=== PATIENT | male | born 1995 | race Caucasian/White ===

== ENCOUNTER 2024-09-24 20:39 | Emergency (ER) | payer BC ==
[~2024-09-24] VITALS: Ht 180.3 cm; Wt 95.5 kg
[2024-09-24] VITALS (7 sets, daily range): BP systolic 81–141; BP diastolic 53–96
[2024-09-24] MEDS ORDERED: SODIUM CHLORIDE 0.9% 1,000 ML IV STA (20:46)
[2024-09-24] MEDS ORDERED: TAMSULOSIN HCL 0.4 MG CAP PO STA (20:46)
[2024-09-24] MEDS ORDERED: MORPHINE SULFATE 4 MG/ML VIAL IV STA (20:46)
[2024-09-24] MEDS ORDERED: KETOROLAC TROMETHAMINE 30 MG/ML SDV IV ONE (20:50)
[2024-09-24] MEDS ORDERED: PROMETHAZINE HCL 25 MG/ML AMP IV ONE (20:50)
[2024-09-24 21:01] LABS: BASO% 0.8 % (0-3); EOS% 2.2 % (0-8); HEMATOCRIT 42.1 % (39.0-50.0); HEMOGLOBIN 14.1 g/dl (14.0-18.0); LYMPH% 29.6 % (15-41); MEAN CELL VOLUME 91.7 fL CALC (80.0-100.0); MEAN CORPUSCULAR HGB 30.7 pG CALC (26.0-32.0); MEAN CORPUSCULAR HGB CONC 33.5 g/dL CAL (32.0-36.0); MONO% 11.6 % (2-13); NEUT# 3.61 thou/uL (1.82-7.42); NEUT% 55.8 % (42-76); RED BLOOD COUNT 4.59 mill/uL (4.70-6.10)
[2024-09-24 21:21] LABS: URINE BILIRUBIN - DIPSTICK Negative (NEGATIVE); URINE BLOOD DIPSTICK Small (NEGATIVE); URINE GLUCOSE - DIPSTICK Negative (NEGATIVE); URINE KETONE Negative (NEGATIVE); URINE LEUK ESTERASE Negative (NEGATIVE); URINE NITRITE - DIPSTICK Negative (Negative); URINE PH 6.5 (4.5-8.0); URINE PROTEIN - DIPSTICK Negative (NEG-TRACE); URINE UROBILINOGEN - DIPSTICK 0.2 E.U./dL (0.2)
[2024-09-24 21:24] LABS: URINE COLOR Yellow
[2024-09-24 21:30] LABS: URINE MUCUS FEW hpf (NONE-FEW); URINE WBC 0-2 WBC/hpf (0-5)
[2024-09-24 21:34] LABS: ALBUMIN 4.7 g/dL (3.2-5.0); BILIRUBIN, TOTAL 0.4 mg/dL (0.2-1.3); TOTAL PROTEIN 7.2 g/dL (6.3-8.2)
[2024-09-24] MEDS ORDERED: PROMETHAZINE HCL 25 MG/TAB PO ONE (22:50)
[2024-09-24] MEDS ORDERED: TAMSULOSIN HCL 0.4 MG CAP PO ONE (22:50)
[2024-09-24] MEDS ORDERED: LORTAB 5/3255 MG PO (22:50)
[2024-09-24] MEDS ORDERED: TAMSULOSIN0.4 MG PO (22:50)
[2024-09-24] MEDS ORDERED: PROMETHAZINE HY25 M1 PO (22:50)
[2024-09-24] MEDS ORDERED: HYDROcodone 5 MG/Acetaminophen 325 MG/COMBO PO ONE (22:50)
== END 2024-09-24 23:00 | disposition home or self-care (01) | DRG 694 ==
LOC: ED 20:39
PROVIDERS: Family Medicine
DX: N13.2 Hydronephrosis with renal and ureteral calculous obstruction (principal)
CPT/HCPCS: J2550